=== PATIENT | female | born 1975 | race Caucasian/White ===

== ENCOUNTER → 2023-05-30 12:41 | Outpatient (REF) | payer OTHER, SELFPAY | LOC: WDC 12:41 | PROVIDERS: ATTENDING PHYSICIAN Obstetrics & Gynecology; FAMILY PHYSICIAN Family Medicine | DX: R92.2 Inconclusive mammogram (principal) | CPT/HCPCS: 76641 ==

== ENCOUNTER 2023-08-26 20:21 | Emergency (ER) | payer OTHER, SELFPAY ==
[2023-08-26] VITALS (9 sets, daily range): BP systolic 110–131; BP diastolic 78–98; PULSE 81–83; BMI 27.5
[2023-08-26 21:05] LABS: % Basophils 0.6 % (0-2); % Immature Granulocytes 0.6 % (0-0.5); % Lymphocytes 19.2 % (20.5-51.1); % Monocytes 4.8 % (1.7-9.3); % Neutrophils 72.8 % (42.2-75.2); Absolute Basophils 0.1 10^3/uL (0-0.2); Absolute Eosinophils 0.3 10^3/uL (0-0.7); Absolute Immature Granulocytes 0.1 10^3/uL (0-0.05); Absolute Lymphocytes 2.4 10^3/uL (1.2-3.4); Absolute Monocytes 0.6 10^3/uL (0.1-0.6); Hematocrit 41.7 % (37.0-47.0); Hemoglobin 14.4 g/dL (12.0-16.0); Mean Corp Hgb Conc. 34.5 g/dL (33.0-37.0); Mean Corpuscular Hgb 30.2 pg (27.0-31.0); Mean Corpuscular Volume 87.4 fL (81.0-99.0); Mean Platelet Volume 9.3 fL (7.4-10.4); Nucleated Red Blood Cells % 0 %; Platelet Count 345 10^3/uL (130-400); Red Blood Cell Count 4.77 10^6/uL (4.20-5.40); Red Cell Dist. Width 12.7 % (11.5-14.5); White Blood Cell Count 12.4 10^3/uL (4.8-10.8)
[2023-08-26 21:17] LABS: HCG, Serum Qualitative Screen Negative
[2023-08-26 21:20] LABS: ALT (SGPT) 32 U/L (0-35); AST (SGOT) 26 U/L (14-36); Albumin 4.7 g/dl (3.5-5.0); Alkaline Phosphatase 124 U/L (38-126); Blood Urea Nitrogen 11 mg/dl (7-17); Calcium 9.4 mg/dl (8.4-10.2); Carbon Dioxide 18 mmol/L (22-30); Chloride 105 mmol/L (98-107); Estimated Creatinine Clearance 88 ml/min; Glucose 133 mg/dl (70-99); Potassium 3.5 mmol/L (3.5-5.1); Sodium 140 mmol/L (135-145); Total Bilirubin 0.5 mg/dl (0.2-1.3); Total Protein 7.3 g/dl (6.3-8.2); eGFR > 60.00
--- NOTE | 2023-08-26 23:22 | ED.GENMED ---
History of Present Illness
General
Chief Complaint: Dizziness
Source: patient
Exam Limitations: none
Time Seen by Provider: 08/26/23 22:46
History of Present Illness
History of Present Illness:
This is a 48 year old female that comes in with c/o dizziness. State that she and her were at a Brewery. States that she had 2 beers and they they went to a friend house and she had some chips. States that they went back to the brewery and
she was walking up to the door when she started to feel dizzy. State that she sat down but was unable to lay down. State that she felt like she was spinning and then she vomited. States that she has had Vertigo in the past and had Vestibular
therapy but it hasn't bothered her since. States that she still feels slightly dizzy. Denies any fever, chills, chest pain, SOB, abd pain, diarrhea, headache, urinary burning.
Past History
Past History
ED Past Medical History: Other (Vertigo); Negative Asthma, HTN, Hypercholesterolemia or NIDDM
ED Past Surgical History: and Orthopedic (Left and right rotator cuff surgery)
Social History
Tobacco: Non-smoker
Alcohol: Occasional
Personal:
Living: with family
Review of Systems
Review of Systems
All Other Systems: ROS reviewed and negative except as documented in HPI and ROS
Constitutional: Reports no symptoms; Denies fever or chills
EENT: Reports no symptoms
Respiratory: Reports no symptoms; Denies cough or trouble breathing
Cardiac: Reports no symptoms; Denies chest pain
ABD/GI: Reports nausea and vomiting; Denies abdominal pain or diarrhea
: Reports no symptoms; Denies dysuria, frequency or urgency
Musculoskeletal: Reports no symptoms
Skin: Reports no symptoms
Neurological: Reports dizzy; Denies headache
Psychiatric: Reports no symptoms
Phy Exam
General Physical Exam
General Presentation: no apparent distress
General age: appears stated age
General Skin: warm and dry
General Habitus: normal
General Mental: alert
General Hydration: appears well hydrated
ENT Exam
ENT Exam: TM's normal, pharynx normal, neck supple and other (Patient turns her head form side to side and stops and feels like she is spinning. )
Eye Exam
Eye Exam: EOMI
Cardiovascular Exam
Cardiovascular Exam: regular rate/rhythm, no edema, no murmur and normal peripheral pulses
Pulmonary Exam
Pulmonary Exam: lungs clear, no respiratory distress, no rales, chest non tender, no crackles, no rhonchi, no wheezing and no cough
Gastrointestinal Exam
Gastrointestinal Exam: normal bowel sounds, non tender, soft, no organomegaly, no pulsatile mass and non distended
Musculoskeletal Exam
Musculoskeletal Exam: full ROM and no edema
Skin Exam
Skin Exam: normal color, warm/dry, no rash and no petechia
Psychiatric Exam
Psychiatric Exam: normal mood/affect
Course
Orders/Labs/Results
Orders:
Orders
08/26/23 20:28
Electrocardiogram (*1) Urgent
Reason for Study: Vertigo / Dizzy
08/26/23 20:29
EKG- Treatment ONCE
Test Result ONCE
08/26/23 20:58
Complete Blood Count/With Diff Urgent
Comprehensive Metabolic Panel Urgent
HCG, Serum Qualitative Screen Urgent
08/26/23 23:22
Orthostatic VS- Treatment ONCE
Meclizine [Antivert] 50 mg PO NOW STA
Ondansetron Injectable [Zofran] 4 mg IV NOW STA
Abnormal Lab Results
08/26/23
20:58
WBC 12.4 H 10^3/uL
(4.8-10.8)
Abs Immat Gran (auto) 0.1 H 10^3/uL
(0-0.05)
Absolute Neuts (auto) 9.0 H 10^3/uL
(1.4-6.5)
Immature Gran % 0.6 H %
(0-0.5)
Lymphocytes % 19.2 L %
(20.5-51.1)
Carbon Dioxide 18 L mmol/L
(22-30)
Glucose 133 H mg/dl
(70-99)
08/26/23 20:58
08/26/23 20:58
Leukocytosis, Carbon dioxide low. glucose nonfasting. HCG negative.
Vital Signs
Initial and Last Documented VS:
Initial Vital Signs
Pulse Resp BP Pulse Ox
74 18 131/89 97
08/26/23 20:24 08/26/23 20:24 08/26/23 20:24 08/26/23 20:24
Last Documented Vital Signs
Pulse Resp BP Pulse Ox
77 18 128/98 99
08/27/23 01:00 08/27/23 01:00 08/26/23 23:33 08/27/23 01:00
MDM/Problems Addressed
Differential Diagnosis Includes:
Vertigo, Dehydration
MDM/Problems Addressed:
This is a 48 year old female that comes in with c/o dizziness. State that she had a few beers and they were going back to the brewery when she became dizzy and had to sit down. States thtat she was unable to lay down and then she started vomiting.
Will check labs, give IV fluids. Medicate for nausea and Antivert for the dizziness.
Back into see patient. States that she still is feeling some dizziness but better. Will have patient follow up with the PCP and possible go back for Vestibular therapy. Will give prescription for Antivert and have patient increase her water intake.
Patent to return with increased dizziness, headache or any other concerns.
Chronic conditions affecting care:
Vertigo
Acute Exacerbation and/or Progression of Chronic Illness:
Vertigo
*Pulse Oximetry
Patient hypoxic: no
*EKG
Interpreted by ED Provider?: Yes
Heart Rate: 80
Rate: normal
Rhythm: sinus
Roach: normal axis
Interval: normal interval
QRS Pattern: normal QRS
Ischemia: no ischemia
*Dip Guider Stoves Interpretation
Rate: normal
Heart Rate: 81
Rhythm: sinus
*Critical Care Note
Total Time (30-74mins, 75-104mins- exclusive of procedures): Not Applicable
ED Attending Note
-
Portions of this chart may have been created with voice recognition software.� Occasional wrong word or��sound alike� substitutions may have occurred due to the inherent limitations of voice recognition software.
Discharge Plan
Departure
Patient Disposition: Home (Routine Discharge)
Date of Disposition: 08/27/23
Time of Disposition: 01:08
Patient with high blood pressure during this ER visit?: No
Condition: Good
Covid-19: Not Applicable
Discharge Problem:
Vertigo
Instructions: Vertigo (a Type of Dizziness) (DC)
Prescriptions:
New
meclizine [Antivert] 50 mg tablet
50 mg PO BID PRN (Reason: dizziness) Qty: 10 0RF
ondansetron 4 mg tablet,disintegrating
4 mg PO Q8H PRN (Reason: nausea and vomiting) Qty: 7 0RF
Referrals:
Love Kern MD [Family Provider] - Follow up in 2-3 days
Activity Restrictions/Additional Instructions:
As discussed, your blood work shows that your WBC are very slightly elevated. This can happen with stress. Your ECG is normal. This is most likely Vertigo. Please use the Antivert for the dizziness for the next 2 days. This prescription has been
sent to your pharmacy. You have also been given a prescription for Zofran to help with any nausea/vomiting. If after this you are feeling better you can stop this medication. Please increase your water intake to 8-8oz glasses daily. Follow up with
the family doctor on Tuesday. IF YOU HAVE ANY OTHER CONCERNS PLEASE RETURN TO THE EMERGENCY ROOM.
Interventions
Interventions:
*Risk Screen - Suicide Last Done: 08/26/23 20:52
*General Assessment Last Done: 08/26/23 20:24
*Neglect/Abuse Screening Last Done: 08/26/23 20:24
ED- Fall Risk Assessment Last Done: 08/26/23 20:52
ED- Neurological Assessment Last Done: 08/26/23 20:52
ED Swallowing Screen Last Done: 08/26/23 20:52
Discharge Date and Time
Print Language: ITALIAN
[2023-08-26] MEDS: ANTIVERT 50 MG PO (23:30)
[2023-08-26] MEDS: ZOFRAN 4 MG IV (23:30)
== END 2023-08-27 01:25 | disposition home or self-care (01) ==
LOC: EMR 20:21
PROVIDERS: Emergency Medicine; EMERGENCY PHYSICIAN Emergency Medicine; FAMILY PHYSICIAN Family Medicine
DX: R42 Dizziness and giddiness (principal); R11.2 Nausea with vomiting, unspecified; Z88.8 Allergy status to other drugs, medicaments and biological substances
CPT/HCPCS: 99284; 96374; 80053; 84703; 85025; 93005

== ENCOUNTER → 2023-12-21 13:29 | Outpatient (REF) | payer OTHER, SELFPAY | LOC: HWRAD 13:29 | PROVIDERS: ATTENDING PHYSICIAN Internal Medicine Endocrinology, Diabetes & Metabolism; FAMILY PHYSICIAN Family Medicine | DX: E04.2 Nontoxic multinodular goiter (principal) | CPT/HCPCS: 76536 ==

== ENCOUNTER → 2024-02-27 08:12 | Outpatient (REF) | payer OTHER, SELFPAY | LOC: WDC 08:12 | PROVIDERS: ATTENDING PHYSICIAN Nurse Practitioner Obstetrics & Gynecology; FAMILY PHYSICIAN Family Medicine | DX: Z12.31 Encounter for screening mammogram for malignant neoplasm of breast (principal) | CPT/HCPCS: 77063; 77067 ==

== ENCOUNTER → 2024-05-29 12:52 | Outpatient (REF) | payer OTHER, SELFPAY | LOC: WDC 12:52 | PROVIDERS: ATTENDING PHYSICIAN Nurse Practitioner Obstetrics & Gynecology; FAMILY PHYSICIAN Family Medicine | DX: R92.2 Inconclusive mammogram (principal); R92.333 Mammographic heterogeneous density, bilateral breasts | CPT/HCPCS: 76641 ==

== ENCOUNTER → 2024-10-08 08:18 | Outpatient (REF) | payer OTHER, SELFPAY | LOC: HWRAD 08:18 | PROVIDERS: ATTENDING PHYSICIAN Nurse Practitioner Obstetrics & Gynecology; FAMILY PHYSICIAN Family Medicine | DX: N95.0 Postmenopausal bleeding (principal) | CPT/HCPCS: 76830; 76856 ==

== ENCOUNTER → 2024-12-04 13:12 | Outpatient (REF) | payer OTHER, SELFPAY | LOC: HWRAD 13:12 | PROVIDERS: ATTENDING PHYSICIAN Advanced Practice Midwife; FAMILY PHYSICIAN Family Medicine | DX: R93.89 Abnormal findings on diagnostic imaging of other specified body structures (principal) | CPT/HCPCS: 76830; 76856 ==

== ENCOUNTER 2025-01-10 06:30 | Day surgery (SDC) | payer OTHER, SELFPAY ==
[2025-01-02 13:37] VITALS: BMI 31.5
[2025-01-10] VITALS (8 sets, daily range): BP systolic 124–162; BP diastolic 79–98; BMI 31.5
[2025-01-10] MEDS: NORMOSOL-R/PLASMALYTE-A 1000 IV (12:40)
[2025-01-10] MEDS: TYLENOL 1000 MG PO (13:13)
== END 2025-01-10 16:04 | disposition home or self-care (01) ==
LOC: SDS 06:30
PROVIDERS: ATTENDING PHYSICIAN Obstetrics & Gynecology; FAMILY PHYSICIAN Family Medicine
DX: N95.0 Postmenopausal bleeding (principal)
CPT/HCPCS: 58558; 36415; 88305; 93005

== ENCOUNTER → 2025-02-27 10:44 | Outpatient (REF) | payer OTHER, SELFPAY | LOC: WDC 10:44 | PROVIDERS: ATTENDING PHYSICIAN Advanced Practice Midwife; FAMILY PHYSICIAN Family Medicine | DX: Z12.31 Encounter for screening mammogram for malignant neoplasm of breast (principal) | CPT/HCPCS: 77063; 77067 ==